=== PATIENT | female | born 1970 | race Caucasian/White ===

== ENCOUNTER 2019-03-01 16:10 | Emergency (ER) | payer MEDICARE ==
[~2019-03-01] VITALS: Ht 172.7 cm; Wt 59.0 kg
[2019-03-01] MEDS ORDERED: CLON1 PO (16:37)
[2019-03-01] MEDS ORDERED: Aspirin EC81 MG PO (16:38)
[2019-03-01] MEDS ORDERED: SULF500A PO ×2 (16:38→18:18)
[2019-03-01] MEDS ORDERED: ALBU90OI61 INH (16:38)
[2019-03-01] MEDS ORDERED: Multivitamin1 EAC2 PO (16:39)
== END 2019-03-01 18:28 | disposition home or self-care (01) ==
LOC: ER 16:10
DX: K51.90 Ulcerative colitis, unspecified, without complications (principal)
CPT/HCPCS: 99283